=== PATIENT | male | born 1990 | race Caucasian/White ===

== ENCOUNTER 2021-04-16 15:24 | Emergency (ER) | payer OTHER, BC ==
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
[2021-04-16] MEDS ORDERED: Iopamidol 755 Mg/ML 100 ML Bottle IV ONE (17:40)
[2021-04-16 18:56] VITALS: BP 126/71; PULSE 78
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
== END 2021-04-16 18:50 | disposition home or self-care (01) ==
LOC: FB.ED 15:24
DX: S80.212A Abrasion, left knee, initial encounter (principal); S80.211A Abrasion, right knee, initial encounter; S60.512A Abrasion of left hand, initial encounter; S09.90XA Unspecified injury of head, initial encounter; W22.8XXA Striking against or struck by other objects, initial encounter; V49.10XA Passenger injured in collision with unspecified motor vehicles in nontraffic accident, initial encounter
CPT/HCPCS: 70450; 71260; 72125; 73080; 74177; 80053; 81001; 84484; 85025; 93005; 99284; Q9967